=== PATIENT | male | born 1955 | race Caucasian/White ===

== ENCOUNTER 2022-09-14 08:10 | Outpatient (CLI) | payer BC, SELFPAY | END 2022-09-14 08:11 | disposition home or self-care (01) | LOC: NFLDREF 09-16 06:52 | PROVIDERS: PCP Internal Medicine; Referring Provider Internal Medicine; Visit Provider Internal Medicine | DX: I10 Essential (primary) hypertension (principal); E78.5 Hyperlipidemia, unspecified | CPT/HCPCS: 80048; 80061 ==

== ENCOUNTER 2023-02-01 13:34 | Outpatient (CLI) | payer BC, SELFPAY ==
--- NOTE | 2023-02-01 15:53 | W.PM.STED ---
Stress Test Note Date Date of test: 02/01/23 Providers Primary care provider: Obdulia Spear Stress test physician: Sonido Reyes Stress Test Note Stress test ordered: Stress Echo Indication for test: Chest pain Results discussion: Patient is a very nice gentleman who presents for the above test, after discussion the risks benefits side effects he would like to proceed, cardiac stress test medical history form is reviewed, pretest EKG shows normal sinus rhythm with a ventricular rate of 73, normal blood pressure 123/75. The standard Jhon protocol is followed, good exercise tolerance is noted. Patient is exercised for a total of 9 minutes, achieved about mal quit limit of 10.3 Mets, with a maximum heart rate 154. 120% of the target. He had no chest pain, there is no shortness of breath. No significant ST wave changes are suggestive of ischemia, there is no dysrhythmias, he recovered normally. Subjectively had no chest pain shortness of breath. Or other anginal equivalent symptoms. Impression: Negative electrographic portion of stress echo Follow up suggested: Patient will be discharged home, Cardiology will review the echo portion, condition was felt to be good. He recovered back to normal and was discharged home. In good condition.
[2023-02-01 16:10] VITALS: BP 130/78; PULSE 90
== END 2023-02-01 13:35 | disposition home or self-care (01) ==
LOC: STRESS 13:35
PROVIDERS: PCP Internal Medicine; Visit Provider Family Medicine
DX: R07.89 Other chest pain (principal)
CPT/HCPCS: 93016; 93325; 93351

== ENCOUNTER 2023-06-14 06:09 | Outpatient (CLI) | payer BC, SELFPAY ==
--- NOTE | 2023-06-14 08:06 | W.ANESCHARGE ---
Anesthesia Charges Start Date/Time Anesthesia Start Date: 06/14/23 Anesthesia Start Time: 07:20 Stop Date/Time Anesthesia Stop Date: 06/14/23 Anesthesia Stop Time: 08:02
--- NOTE | 2023-06-14 08:20 | W.ANESCHARGE ---
Anesthesia Charges Start Date/Time Anesthesia Start Date: 06/14/23 Anesthesia Start Time: 07:20 Stop Date/Time Anesthesia Stop Date: 06/14/23 Anesthesia Stop Time: 08:02 Summary Extremes of Age - Over 70 or under 1: MDA
== END 2023-06-14 06:10 | disposition home or self-care (01) ==
LOC: OP CLINIC 06:10
PROVIDERS: PCP Internal Medicine; Visit Provider Surgery
DX: Z12.11 Encounter for screening for malignant neoplasm of colon (principal); K63.5 Polyp of colon; K57.30 Diverticulosis of large intestine without perforation or abscess without bleeding
CPT/HCPCS: 00811; 45385; 88305; 99100; J2704

== ENCOUNTER 2023-07-20 12:35 | Outpatient (CLI) | payer BC, SELFPAY | END 2023-07-20 12:36 | disposition home or self-care (01) | LOC: RAD 12:39 | PROVIDERS: PCP Internal Medicine; Visit Provider Internal Medicine | DX: I35.1 Nonrheumatic aortic (valve) insufficiency (principal); I35.0 Nonrheumatic aortic (valve) stenosis; I77.810 Thoracic aortic ectasia | CPT/HCPCS: 93306 ==

== ENCOUNTER 2023-12-09 07:31 | Outpatient (CLI) | payer BC, SELFPAY ==
--- OUTSIDE RECORDS SUMMARY | 2023-12-13 16:13 | XMS_ITS | Clinical Summary ---
Author Organization [facility] Address [place], [place] [address] Care Team Providers Care Bone Cooking Operator Name Role Phone Obdulia Spear MD Primary Care Provider [phone]- [phone] Allergies No known active allergies Medications Medication Sig Dispensed Refills Start Date End Date Status LORAZEPAM 1 MG TAB take 1 tablet (1 mg)- 1.5 mg prn 0 04/17/2007 Active CYCLOBENZAPRINE 10 MG TAB take 1 tablet (10 mg) by oral route 3times per day 0 04/17/2007 Active simvastatin (ZOCOR) 20 mg tablet 20 mg. 10/08/2015 Active lisinopril (PRINIVIL; ZESTRIL) 10 mg tablet 10 mg. 10/02/2015 Act arlette acyclovir (ZOVIRAX) 200 mg capsule 200 mg. 10/02/2015 Active Immunizations Name Administration Dates Next Due Tuberculin (PPD) 07/06/2011 Social History Tobacco Use Types Packs/Day Years Used Date Smoking Tobacco: Never Assessed Sex and Gender Information Value Date Recorded Sex Assigned at Not on file Gender Identity Not on file Sexual Orientation Not on file Last Filed Vital Signs Vital Sign Reading Time Taken Comments Blood Pressure 120/90 10/29/2015 9:56 AM CDT Pulse 66 10/29/2015 9:17 AM CDT Temperature 36.5 ??C (97.7 ??F) 10/29/2015 9:17 AM CD T Respiratory Rate - - Oxygen Saturation 97% 10/29/2015 9:17 AM CDT Inhaled Oxygen Concentration - - Weight 102.9 kg (226 lb 12.8 oz) 10/29/2015 9:17 AM CDT Height - - Body Mass Index - - Plan of Treatment Health Maintenance Due Date Last Done Comments Tdap 01/21/1964 Depression screening for age 12+ 1965 BMI (ht and wt on same day) for age 18+ 1971 Hepatitis C screening for ag e 18-79 1971 Tetanus booster 1973 Colonoscopy through age 75 1998 Lipids for age 45-75 1998 Zoster (shingles) series for age 50+ (1 of 2) 2003 Pneumococcal series for age 65+ (1 of 1 - PCV) 2018 COVID-19 vaccine series (2022- season) 2023 04/19/2022, 05/27/2021, 09/10/2020, Additional history exists Influenza for age 65+ 03/04/2024 Care Teams Bone Cooking Operator Relationship Specialty Start Date End Date Obdulia Spear MD [address] [place] [address] PCP - General Internal Medicine 02/01/23
== END 2023-12-09 07:32 | disposition home or self-care (01) ==
LOC: NFLDREF 12-13 16:12
PROVIDERS: PCP Internal Medicine; Referring Provider Internal Medicine; Visit Provider Internal Medicine
DX: Z00.00 Encounter for general adult medical examination without abnormal findings (principal); I10 Essential (primary) hypertension; E78.5 Hyperlipidemia, unspecified; Z12.5 Encounter for screening for malignant neoplasm of prostate
CPT/HCPCS: 80048; 80061; G0103

== ENCOUNTER 2025-02-18 14:53 | Outpatient (CLI) | payer BC, SELFPAY | END 2025-02-18 14:54 | disposition home or self-care (01) | PROVIDERS: PCP Internal Medicine; Visit Provider Internal Medicine | DX: E78.5 Hyperlipidemia, unspecified (principal); I10 Essential (primary) hypertension; Z12.5 Encounter for screening for malignant neoplasm of prostate | CPT/HCPCS: 80048; 80061; G0103 ==

== ENCOUNTER 2025-03-11 09:25 | Day surgery (SDC) | payer MEDICARE, SELFPAY ==
[2025-03-11 10:02] VITALS: BMI 27.2
[2025-03-11 10:04] VITALS: BP 138/91; PULSE 76; RESP 20; TEMP 36.8; O2SAT 99
[2025-03-11] MEDS: LACTATED RINGERS 1000 ML 1,000 ML 100 ML IV (10:15)
[2025-03-11] MEDS: SODIUM CHLORIDE 0.9 % (FLUSH) 10 ML SYRINGE IVF (10:16)
--- NOTE | 2025-03-11 10:50 | W.PM.H&PU ---
History & Physical Update History & Physical Update H&P Reviewed and patient assessed: No changes noted
--- NOTE | 2025-03-11 10:53 | P.GSOP_ITS ---
Operative Note Date of procedure: 03/11/25 Pre-op diagnosis: 1. Enlarging Penile skin lesion. Post-op diagnosis: Same Type of Procedure: 1. Excision of penile skin lesion. Indications: 70-year-old male presented to clinic with a skin lesion that he noticed on his penis. The lesion was noted over a year ago and over the last year has been increasing in size. The lesion was not painful. on clinical exam on the right inferior part of the penile skin there was a horizontally oriented slightly irregular raised skin lesion measuring 1.1 x 0.9 cm. This was dark brown colored. This was confined to the skin. Given patient's clinical history and enlarging nature of this lesion, excision of this lesion was recommended. Patient preferred to have excision of the lesion with anesthesia. The procedure was discussed in detail. The risks associated procedure including infection, bleeding, and the need for additional procedures were all discussed with the patient, and he agreed to proceed. Procedure Description: After discussing the risks and benefits of the procedure, the patient signed informed consent.? The operative site was marked and the patient was brought to the operating room and placed on the operating table in supine position.? Care was taken to pad the patient's pressure points.?? The patient was then sedated by anesthesia.? The operative site was then prepped and draped in the usual sterile fashion.? A time-out was then performed. The skin lesion was identified on the posterior distal shaft of the penile skin. Local anesthetic without epinephrine was injected at the surgical site. A horizontal elliptical skin incision was made with a scalpel excising 1 x 0.8 cm penile skin lesion. The skin lesion was only confined to the skin itself and was superficial to the superficial fascia. The lesion was excised with a scalpel. It was marked with a single stitch superior and double right and sent to pathology. Hemostasis was achieved with cautery. The dermis was then reapproximated with interrupted 4-0 Vicryl sutures. The skin was closed with lai rgical glue. The patient was then woken and transported to the recovery area in stable condition. ? The patient tolerated the procedure well. Findings: The penile skin lesion was confined to the skin and was excised. Anesthesia: MAC and local Surgeon: Dayami Bauer MD Estimated blood loss (mL): 2 Additional Specimen Information: 1. Penile skin lesion Condition: stable
[2025-03-11] MEDS: LIDOCAINE 1 % PF 30 ML INJECTION (11:17)
[2025-03-11] MEDS: BUPIVACAINE 0.25% 30 ML INJECTION (11:17)
--- NOTE | 2025-03-11 11:43 | P.ANES_ITS ---
Anesthesia Charges Start Date/Time Anesthesia Start Date: 03/11/25 Anesthesia Start Time: 10:56 Stop Date/Time Anesthesia Stop Date: 03/11/25 Anesthesia Stop Time: 11:44 Coding CPT Codes CPT Codes: ANESTH SKIN EXT/PER/ATRUNK - 37590 ([id number]) P3 - PATIENT W/SEVERE SYS DISEASE, QK - FLOWER CHENILLER 2-4 CNCRNT ANES PROC, QX - VP CELEBRITY SERVICES SVC W/ MD MED DIRECTION
--- NOTE | 2025-03-11 11:43 | W.ANESCHARGE ---
Anesthesia Charges Start Date/Time Anesthesia Start Date: 03/11/25 Anesthesia Start Time: 10:56 Stop Date/Time Anesthesia Stop Date: 03/11/25 Anesthesia Stop Time: 11:44 Coding CPT Codes CPT Codes: ANESTH SKIN EXT/PER/ATRUNK - 14126 ([id number]) P3 - PATIENT W/SEVERE SYS DISEASE, QK - EXPERIENCE PLANNING STRATEGIST 2-4 CNCRNT ANES PROC, QX - DE ICER ELEMENT WINDER SVC W/ MD MED DIRECTION
[2025-03-11 11:45] VITALS: BP 114/75; PULSE 68; RESP 20; TEMP 36.7; O2SAT 98
--- NOTE | 2025-03-11 11:57 | P.ANES_ITS ---
Anesthesia Charges Start Date/Time Anesthesia Start Date: 03/11/25 Anesthesia Start Time: 10:56 Stop Date/Time Anesthesia Stop Date: 03/11/25 Anesthesia Stop Time: 11:44 Summary Extremes of Age - Over 70 or under 1: MDA Coding CPT Codes CPT Codes: ANESTH SKIN EXT/PER/ATRUNK - 21757 ([id number]) QK - INSIDE SALES TRAINER 2-4 CNCRNT ANES PROC, QX - CARBIDE POWDER PROCESSOR SVC W/ MD MED DIRECTION, P3 - PATIENT W/SEVERE SYS DISEASE Additional Codes: Summary - Extremes of Age - Over 70 or under 1: MDA ([id number])
[2025-03-11 12:00] VITALS: BP 122/78; PULSE 53; RESP 20; O2SAT 98
[2025-03-11 12:15] VITALS: BP 122/76; PULSE 61; RESP 20; O2SAT 98
[2025-03-11 12:30] VITALS: BP 129/78; PULSE 62; RESP 20; O2SAT 98
== END 2025-03-11 12:42 | disposition home or self-care (01) ==
PROVIDERS: PCP Internal Medicine; Visit Provider Surgery
PROC: (CPT 11422; principal; 2025-03-11 11:00)
DX: A63.0 Anogenital (venereal) warts (principal); N48.89 Other specified disorders of penis
CPT/HCPCS: 11422; 00400; 88305; 99100; J0665; J0690; J1100; J2003; J2250; J2405; J2704; J3490; J7120